=== PATIENT | female | born 1995 | race American Indian/Alaskan Native ===

== ENCOUNTER 2017-02-05 12:32 | Emergency (ER) | payer SELFPAY ==
[2017-02-05 12:43] VITALS: BP 114/93
--- NOTE | 2017-02-05 13:14 | XRay Report ---
RIGHT FOREARM, 2 VIEWS RIGHT WRIST, 3 VIEWS History: Pain and swelling. Findings: An impacted, comminuted fracture is identified in the distal radius with intra-articular extension to the radiocarpal joint. The remainder of the radius and the ulna are intact. The carpal bones are in appropriate relationship. No additional fracture or malalignment. Impression: Comminuted, impacted fracture of the distal radius with intra-articular extension at the radiocarpal joint.
[2017-02-05] MEDS ORDERED: PERCOCET 5/325 PO ONE (13:21)
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
== END 2017-02-05 16:43 | disposition home or self-care (01) ==
LOC: ED 12:32
DX: S52.501A Unspecified fracture of the lower end of right radius, initial encounter for closed fracture (principal); V89.2XXA Person injured in unspecified motor-vehicle accident, traffic, initial encounter; Y93.89 Activity, other specified; Y99.8 Other external cause status; Y92.89 Other specified places as the place of occurrence of the external cause